=== PATIENT | female | born 1990 | race Caucasian/White ===

== ENCOUNTER → 2017-09-20 | Day surgery (SDC) | payer OTHER ==
[~2017-09-20] VITALS: Ht 154.9 cm; Wt 68.9 kg
--- NOTE | 2017-09-20 11:11 | Operative Report ---
Operative/Inv Procedure Report Surgery Date: 09/20/17 Name of Procedure: Removal of On D&C hysteroscopy Pre-Operative Diagnosis: Metromenorrhagia Post-Operative Diagnosis: Saline Estimated Blood Loss: less than 50ml Surgeon/Headend Technician: Karthik HESS,[place] Bridges Anesthesia: moderate sedation, block Operative/Procedure Note Note: Patient was taken the operating room placed supine position after adequate sedation on the left arm was prepped and draped so fashion on the left arm had been. I a incision was made with a knife at the base of the On on the substance tissue was lysed and the Was teased from the patient's arm intact the incision was closed with Dermabond Steri-Strips strips were applied patient tolerated that well. At this point patient was placed in dorsosupine position the patient was placed in dorsolithotomy the vagina from dorsal fashion bladder was catheterized examination under anesthesia was performed I speculum was placed into the vagina CO2 tenaculum placed on the Intralipid cervix gentle downward traction cervix side 29 Hegar to allow the insertion of hysteroscope the scope was inserted atraumatically hysteroscope was removed sharp curettage and cervical lining sharp curettage in nature lysed form 2 specimen sent to pathology patient tolerated that well at this point all once was removed from the vagina patient was returned spine position awakened from anesthesia and transferred recovery room awake alert counts correct
== END ==
LOC: STS 05:19
DX: N92.1 Excessive and frequent menstruation with irregular cycle (principal); Z30.46 Encounter for surveillance of implantable subdermal contraceptive; E06.3 Autoimmune thyroiditis; J45.909 Unspecified asthma, uncomplicated; G47.33 Obstructive sleep apnea (adult) (pediatric); Z98.84 Bariatric surgery status; Z45.89 Encounter for adjustment and management of other implanted devices
CPT/HCPCS: 81025; J0131; J2250